=== PATIENT | female | born 1975 | race Two or more races ===

== ENCOUNTER 2020-05-18 21:47 | Inpatient (IN) | payer OTHER ==
[~2020-05-18] VITALS: Ht 157.5 cm; Wt 123.8 kg
[2020-05-19 03:00] VITALS: BP 111/56
--- NOTE | 2020-05-19 03:45 | NUR ---
SALES REPRESENTATIVESADVERTISING LAYOUT WORKER NOTES PATIENT ADMITTED FROM [place]; TRANSFERRED VIA [facility] WITH 2 EMT AT 0245. RECEIVED REPORT FROM [place] EMT. CC: DX: MILD HYPOXIA, COVID PNEUMONIA. PATIENT A/OX4 ABLE TO MAKE NEEDS KNOWN. ON O2 3LPM VIA NC; TOLERATING WELL WITH SOME SOB. ON EXTERNAL CARDIAC TELE MONITORING READING SR AND HR AT 75. IV ON LAC #20; PATENT AND INTACT. C/O MILD PAIN 2/10; TOLERABLE AND REFUSED MEDICATIONS. TEMPERATURE 99.3F; TOOK TYLENOL 1G AND DEXAMETHASONE 1G AT [place]. SKIN CLEAN, DRY, AND INTACT. ALL BELONGINGS ACCOUNTED FOR AND PATIENT SIGNED BELONGINGS LIST FORM. ORIENTED PATIENT TO STAFF AND ROOM. SAFETY MEASURES IN PLACE; BED IN LOWEST LOCKED POSITION, SIDE RAILS UP X2, CALL LIGHT WITHIN EASY REACH. BP 111/56, P 76, T 99.3F, RR 25, O2SAT 96% ON 3LPM ON NASAL CANNULA WILL CONTINUE TO MONITOR.
--- NOTE | 2020-05-19 04:05 | NUR ---
MEDICAL RECORDS FIELD TECHNICIAN NOTES NOTIFIED DR. KEVIN OF PATIENT'S ADMISSION AND ASKED FOR: -ADMISSION ORDER - MRSA SWAB -PROPHYLACTIC ANTICOAGULANT FOR VTE 2 DR. KEVIN AGREED. WILL FOLLOW UP.
[2020-05-19] MEDS ORDERED: ONDANSETRON HCL/PF 4 MG/2 ML VIAL IVP PRN (04:30)
[2020-05-19] MEDS ORDERED: ACETAMINOPHEN 325 MG TABLET PO PRN (04:30)
[2020-05-19] MEDS ORDERED: ENOXAPARIN SODIUM 40 MG/0.4 ML DISP.SYRIN SQ SCH (04:30)
[2020-05-19] MEDS ORDERED: MAG HYDROX/AL HYDROX/SIMETH 30 ML UDC PO PRN (04:30)
[2020-05-19] MEDS ORDERED: Z GUARD REMEDY 2 OZ OINT TP PRN (04:30)
[2020-05-19] MEDS ORDERED: ZOLPIDEM TARTRATE 5 MG TABLET PO PRN (04:30)
[2020-05-19] MEDS ORDERED: MAGNESIUM HYDROXIDE 30 ML UDC PO PRN (04:30)
[2020-05-19] MEDS ORDERED: HYDROCODONE/APAP 5/325MG TABLET PO PRN (04:30)
[2020-05-19 06:59] LABS: BASOPHILS % (AUTO) 0.2 % (0.0-2.0); HEMATOCRIT 35 % (33-45); HEMOGLOBIN 11.4 g/dL (11.5-14.8); LYMPHOCYTES # (AUTO) 0.7 /CMM (0.8-4.8); LYMPHOCYTES % (AUTO) 15.8 % (20.0-44.0); MEAN CORPUSCULAR HGB CONC 33 g/dl (31.0-36.0); MEAN CORPUSCULAR VOLUME 76 fL (82-100); MONOCYTES # (AUTO) 0.2 /CMM (0.1-1.30); MONOCYTES % (AUTO) 3.4 % (2.0-12.0); NEUTROPHILS # (AUTO) 3.8 /CMM (1.8-8.9); NEUTROPHILS % (AUTO) 80.6 % (43.0-81.0); PLATELET COUNT (AUTO) 221 /CMM (150-450); RED BLOOD CELL COUNT(AUTO) 4.62 MIL/uL (4.0-5.2); WHITE BLOOD COUNT (AUTO) 4.7 K/uL (4.3-11.0)
[2020-05-19 07:38] LABS: ALBUMIN 3.1 g/dL (3.4-5.0); BILIRUBIN,TOTAL 0.3 mg/dL (0.2-1.0); CALCIUM, SERUM 8.2 mg/dL (8.5-10.1); CREATININE 0.7 mg/dL (0.6-1.3); MAGNESIUM 2.1 mg/dL (1.8-2.4); PHOSPHORUS 2.8 mg/dL (2.5-4.9); TOTAL PROTEIN, SERUM 7.6 g/dL (6.4-8.2)
[2020-05-19 08:00] VITALS: BP 112/60
--- NOTE | 2020-05-19 08:00 | NUR ---
TELE/RN OPENING NOTE THE PATIENT IS RECEIVED IN BED. PATIENT IS ALERT AND ORIENTED X4. DENIES PAIN. RECEIVING OXYGEN AT 3L/MIN VIA NASAL CANNULA AND DENIES SOB. RESPIRATION REGULAR AND UNLABORED. LAC G 20 PATENT AND SALINE LOCKED. BED LOW AND LOCKED. SIDE RIALS UP X2. CALL LIGHT WITHIN REACH. WILL CONTINUE TO MONITOR.
--- NOTE | 2020-05-19 08:42 | NUR ---
REAL ESTATE UTILIZATION OFFICER CLOSING NOTES PATIENT A/OX4 ABLE TO MAKE NEEDS KNOWN. ON O2 3LPM VIA NC; TOLERATING WELL WITH SOME SOB. ON EXTERNAL CARDIAC TELE MONITORING READING SR AND HR AT 66. IV ON LAC #20; PATENT AND INTACT. SAFETY MEASURES IN PLACE; BED IN LOWEST LOCKED POSITION, SIDE RAILS UP X2, CALL LIGHT WITHIN EASY REACH. ENDORSE PLAN OF CARE TO ONCOMING MORNING RN.
[2020-05-19] MEDS ORDERED: METO50TA16 PO (09:29)
[2020-05-19] MEDS ORDERED: OXYB15TA19 PO (09:29)
[2020-05-19] MEDS ORDERED: ACET-73 PO (09:29)
[2020-05-19] MEDS ORDERED: BENZ200C53 PO (09:29)
[2020-05-19 12:00] VITALS: BP 120/58
[2020-05-19 12:16] LABS: C-REACTIVE PROTEIN 7.9 mg/dL (0.0-0.9)
[2020-05-19] MEDS ORDERED: DEXTROSE 50%-WATER 50 ML DISP.SYRIN IV PRN (15:30)
[2020-05-19 16:00] VITALS: BP 118/55
[2020-05-19] MEDS ORDERED: METOPROLOL TARTRATE 25 MG TABLET PO SCH (17:00)
[2020-05-19] MEDS ORDERED: BENZONATATE 100 MG CAPSULE PO PRN (17:00)
--- NOTE | 2020-05-19 17:20 | NUR ---
RN NOTE [employer]ER [employer] PROMOTER TIM IS MADE AWARE OF EKG RESULT AND PER [employer] PROMOTER NO NEW ORDERS.
[2020-05-19] MEDS: BLOOD SUGAR DIAGNOSTIC 1 EACH STRIP IN SCH ×2 (17:28→21:50)
[2020-05-19] MEDS: APIXABAN 5 MG TABLET PO SCH (17:28)
--- NOTE | 2020-05-19 18:47 | NUR ---
TELE/RN CLOSING NOTE THE PATIENT ALERT AND ORIENTED X4. DENIES PAIN. RECEIVING OXYGEN AT 3L/MIN VIA NASAL CANNULA AND SATURATION IS AT 99%. DENIES SOB. RESPIRATION REGULAR AND UNLABORED. TELE BOX READING IS 78. LAC G 20 PATENT AND SALINE LOCKED. BED LOW AND LOCKED. SIDE RAILS UP X2. CALL LIGHT WITHIN REACH. WILL ENDORSE TO SIMULATION SOFTWARE ENGINEER.
[2020-05-19 20:00] VITALS: BP 101/58
[2020-05-19] MEDS: GUAIFENESIN/CODEINE 10 ML UDC PO PRN (21:04)
[2020-05-19] MEDS: INSULIN REGULAR, HUMAN 100 UNIT/ML 3 ML VIAL SQ PRN (21:52)
[2020-05-20] VITALS (7 sets, daily range): BP systolic 100–150; BP diastolic 51–79
--- NOTE | 2020-05-20 04:37 | NUR ---
CLOSING NOTES: ALERT AND ORIENTATED X4 AMBULATES TO THE BATHROOM STEADY ON HER LEGS NC 02 AT 3 LITERS SATS 97% PATIENT IS COMFORTABLE COUGH SYRUP GIVEN X1 FOR COUGH NONPRODUCTIVE
[2020-05-20] MEDS: BLOOD SUGAR DIAGNOSTIC 1 EACH STRIP IN SCH ×5 (06:13→21:35)
[2020-05-20] MEDS: INSULIN REGULAR, HUMAN 100 UNIT/ML 3 ML VIAL SQ PRN ×3 (06:21→21:37)
[2020-05-20 06:22] LABS: BILIRUBIN,DIRECT 0.1 mg/dL (0.0-0.2); BILIRUBIN,TOTAL 0.3 mg/dL (0.2-1.0); TOTAL PROTEIN, SERUM 7.2 g/dL (6.4-8.2)
--- NOTE | 2020-05-20 07:35 | NUR ---
ms rn received on bed, awake,alert,oriented x4,not in any form of distress, respirations even and unlabored,no sob noted,lungs are diminished,abdomen soft,positive bowel sounds,denies pain at this time,all needs attended.
[2020-05-20] MEDS: DEXAMETHASONE SOD PHOSPHATE 10 MG/ML VIAL IV SCH (08:54)
[2020-05-20] MEDS: OXYBUTYNIN CHLORIDE ER 5 MG TAB PO SCH (08:54)
[2020-05-20] MEDS: GUAIFENESIN/CODEINE 10 ML UDC PO PRN (08:54)
[2020-05-20] MEDS: APIXABAN 5 MG TABLET PO SCH ×2 (08:55→17:50)
--- NOTE | 2020-05-20 09:30 | NUR ---
ms will breakfast served,due meds given,tolerated well.
[2020-05-20] MEDS ORDERED: REMDESIVIR (CHARGED) 200 MG, *LOADING DOSE 1 EA in IV NS 0.9% 210 ML IV ONE (11:00)
--- NOTE | 2020-05-20 12:00 | NUR ---
ms rn was seen by ,with orderes made and carried out.
[2020-05-20] MEDS: METOPROLOL TARTRATE 25 MG TABLET PO SCH ×2 (12:46→20:44)
--- NOTE | 2020-05-20 14:00 | NUR ---
ms rn patient refused convalescent plasma,will discuss w/ dr. lassiter in am.
--- NOTE | 2020-05-20 18:55 | NUR ---
ms rn on bed, no distress noted, o2 lowered to 2 liters saturating 95-96%
--- NOTE | 2020-05-21 06:02 | NUR ---
ALERT AND ORIENTATED X4 COMMENT SHE FEEL MUCH BETTER AFTER GETTING THE REMDISAVIR SHE WANTS TO SPEAK TO MD ELDER PRIOR GETTING THE CONV PLASMA WHICH WILL BE TODAY NO COMPLAINTS THIS 12 HOURS COMFORTABLE
[2020-05-21] MEDS: BLOOD SUGAR DIAGNOSTIC 1 EACH STRIP IN SCH ×4 (06:38→22:12)
[2020-05-21 06:56] LABS: BASOPHILS % (AUTO) 0.2 % (0.0-2.0); HEMATOCRIT 34 % (33-45); HEMOGLOBIN 11.2 g/dL (11.5-14.8); LYMPHOCYTES # (AUTO) 1.4 /CMM (0.8-4.8); LYMPHOCYTES % (AUTO) 23.8 % (20.0-44.0); MEAN CORPUSCULAR HGB CONC 33 g/dl (31.0-36.0); MEAN CORPUSCULAR VOLUME 77 fL (82-100); MONOCYTES # (AUTO) 0.7 /CMM (0.1-1.30); MONOCYTES % (AUTO) 11.5 % (2.0-12.0); NEUTROPHILS # (AUTO) 3.8 /CMM (1.8-8.9); NEUTROPHILS % (AUTO) 64.5 % (43.0-81.0); PLATELET COUNT (AUTO) 247 /CMM (150-450); RED BLOOD CELL COUNT(AUTO) 4.47 MIL/uL (4.0-5.2); WHITE BLOOD COUNT (AUTO) 5.8 K/uL (4.3-11.0)
[2020-05-21 07:05] LABS: CALCIUM, SERUM 8.4 mg/dL (8.5-10.1); CREATININE 0.6 mg/dL (0.6-1.3); MAGNESIUM 2.2 mg/dL (1.8-2.4); PHOSPHORUS 3.3 mg/dL (2.5-4.9); POTASSIUM 3.8 mmol/L (3.5-5.1)
--- NOTE | 2020-05-21 07:30 | NUR ---
PT RECEIVED RESTING COMFORTABLY IN BED. NO S/S OR C/O PAIN OR DISTRESS NOTED. SIDE RAILS UP X2, CALL LIGHT LEFT WITHIN REACH. WILL CONTINUE PLAN OF CARE.
[2020-05-21 08:00] VITALS: BP 120/55
[2020-05-21] MEDS: OXYBUTYNIN CHLORIDE ER 5 MG TAB PO SCH (08:36)
[2020-05-21] MEDS: DEXAMETHASONE SOD PHOSPHATE 10 MG/ML VIAL IV SCH (08:37)
[2020-05-21] MEDS: APIXABAN 5 MG TABLET PO SCH ×2 (08:37→17:32)
[2020-05-21] MEDS: METOPROLOL TARTRATE 25 MG TABLET PO SCH ×3 (08:47→22:00)
[2020-05-21] MEDS: INSULIN REGULAR, HUMAN 100 UNIT/ML 3 ML VIAL SQ PRN ×2 (12:20→17:21)
[2020-05-21 12:45] LABS: ALBUMIN 2.9 g/dL (3.4-5.0); BILIRUBIN,DIRECT 0.1 mg/dL (0.0-0.2); BILIRUBIN,TOTAL 0.2 mg/dL (0.2-1.0); TOTAL PROTEIN, SERUM 7.1 g/dL (6.4-8.2)
[2020-05-21] MEDS: REMDESIVIR (CHARGED) 100 MG in IV NS 0.9% 100 ML IV SCH (15:16)
[2020-05-21 16:00] VITALS: BP 113/59
--- NOTE | 2020-05-21 19:00 | NUR ---
CHANGE OF SHIFT REPORT PT RESTING COMFORTABLY IN BED. NO S/S OR C/O PAIN OR DISTRESS NOTED. SIDE RAILS UP X2, CALL LIGHT LEFT WITHIN REACH. PT KEPT CLEAN, DRY, AND COMFORTABLE. NO SIGNIFICANT CHANGES SINCE PREVIOUS SHIFT. WILL GIVE REPORT TO MICHELET SALINAS.
--- NOTE | 2020-05-21 19:30 | NUR ---
MS/RN OPENING NOTES RECEIVED PATIENT IN BED RESTING. PATIENT IS ALERT AND ORIENTED X 4. PATIENTS BREATHING IS EVEN AND UNLABORED. NO SIGNS OF SOB OR RESPIRATORY NOTED. PATIENT STATES NO PAIN AT THIS TIME. PATIENT HAS IV ACCESS ON LEFT AC #20G SL, INTACT FLUSHING WELL. SAFETY MEASURES ARE IN PLACE, BED IS LOCKED AND PLACED IN THE LOWEST POSITION, CALL LIGHT IS WITHIN REACH. WILL CONTINUE TO MONITOR THROUGH OUT SHIFT.
[2020-05-21 20:00] VITALS: BP 108/62
[2020-05-22] MEDS: BLOOD SUGAR DIAGNOSTIC 1 EACH STRIP IN SCH ×4 (06:52→22:34)
--- NOTE | 2020-05-22 07:05 | NUR ---
MS/RN CLOSING NOTES PATIENT IN BED RESTING. PATIENT IS ALERT AND ORIENTED X 4. PATIENTS BREATHING IS EVEN AND UNLABORED. NO SIGNS OF SOB OR RESPIRATORY NOTED. PATIENT STATES NO PAIN AT THIS TIME. PATIENT HAS IV ACCESS ON LEFT AC #20G SL, INTACT FLUSHING WELL. ALL NEEDS HAVE BEEN MET DURING SHIFT. SAFETY MEASURES ARE IN PLACE, BED IS LOCKED AND PLACED IN THE LOWEST POSITION, CALL LIGHT IS WITHIN REACH. WILL ENDORSE CARE TO DAY SHIFT NURSE.
[2020-05-22 07:39] LABS: ALBUMIN 2.9 g/dL (3.4-5.0); BILIRUBIN,DIRECT 0.1 mg/dL (0.0-0.2); BILIRUBIN,TOTAL 0.2 mg/dL (0.2-1.0); CALCIUM, SERUM 8.6 mg/dL (8.5-10.1); CREATININE 0.6 mg/dL (0.6-1.3); PHOSPHORUS 3.3 mg/dL (2.5-4.9); POTASSIUM 3.9 mmol/L (3.5-5.1)
[2020-05-22 08:00] VITALS: BP 141/63
--- NOTE | 2020-05-22 08:00 | NUR ---
MS RN OPENING NOTES PATIENT IN BED RESTING. PATIENT IS ALERT AND ORIENTED X 4. PATIENTS BREATHING IS EVEN AND UNLABORED. NO SIGNS OF SOB OR RESPIRATORY NOTED ON ROOM AIR. PATIENT DENIES PAIN AT THIS TIME. PATIENT HAS IV ACCESS ON LEFT AC #20G SL, INTACT FLUSHING WELL. SAFETY MEASURES ARE IN PLACE, BED IS LOCKED AND PLACED IN THE LOWEST POSITION, CALL LIGHT IS WITHIN REACH.
[2020-05-22 08:20] LABS: BASOPHILS % (AUTO) 0.1 % (0.0-2.0); EOSINOPHILS % (AUTO) 0.1 % (0.0-6.0); HEMATOCRIT 34 % (33-45); HEMOGLOBIN 11.1 g/dL (11.5-14.8); LYMPHOCYTES # (AUTO) 1.7 /CMM (0.8-4.8); LYMPHOCYTES % (AUTO) 26.1 % (20.0-44.0); MEAN CORPUSCULAR HGB CONC 32 g/dl (31.0-36.0); MEAN CORPUSCULAR VOLUME 77 fL (82-100); MONOCYTES # (AUTO) 0.6 /CMM (0.1-1.30); NEUTROPHILS # (AUTO) 4.3 /CMM (1.8-8.9); NEUTROPHILS % (AUTO) 64.7 % (43.0-81.0); PLATELET COUNT (AUTO) 286 /CMM (150-450); RED BLOOD CELL COUNT(AUTO) 4.47 MIL/uL (4.0-5.2); WHITE BLOOD COUNT (AUTO) 6.7 K/uL (4.3-11.0)
[2020-05-22] MEDS: METOPROLOL TARTRATE 25 MG TABLET PO SCH ×2 (09:00→21:00)
[2020-05-22] MEDS: DEXAMETHASONE SOD PHOSPHATE 10 MG/ML VIAL IV SCH (09:31)
[2020-05-22] MEDS: OXYBUTYNIN CHLORIDE ER 5 MG TAB PO SCH (09:31)
[2020-05-22] MEDS: APIXABAN 5 MG TABLET PO SCH ×2 (09:32→16:36)
[2020-05-22 09:33] LABS: IRON, SERUM 73 ug/dl (50-175); TOTAL IRON BINDING CAPACITY 307 ug/dl (250-450)
[2020-05-22 09:43] LABS: FERRITIN 116 ng/mL (8-388)
[2020-05-22] MEDS: REMDESIVIR (CHARGED) 100 MG in IV NS 0.9% 100 ML IV SCH (11:00)
[2020-05-22] MEDS: INSULIN REGULAR, HUMAN 100 UNIT/ML 3 ML VIAL SQ PRN ×3 (13:03→22:36)
[2020-05-22 16:00] VITALS: BP 119/58
[2020-05-22 18:56] VITALS: BP 119/58
--- NOTE | 2020-05-22 19:30 | NUR ---
MS/RN OPENING NOTES RECEIVED PATIENT IN BED RESTING. PATIENT IS ALERT AND ORIENTED X 4. PATIENTS BREATHING IS EVEN AND UNLABORED. NO SIGNS OF SOB OR RESPIRATORY NOTED. PATIENT STATES NO PAIN AT THIS TIME. SAFETY MEASURES ARE IN PLACE, BED IS LOCKED AND PLACED IN THE LOWEST POSITION, CALL LIGHT IS WITHIN REACH. WILL CONTINUE TO MONITOR THROUGH OUT SHIFT.
--- NOTE | 2020-05-22 19:59 | NUR ---
PT RESTING IN BED WITH NO C/O PAIN OR DISTRESS.CALL LIGHT PLACED WITHIN REACH.
[2020-05-22 20:00] VITALS: BP 114/50
[2020-05-22] MEDS: GUAIFENESIN/CODEINE 10 ML UDC PO PRN (23:52)
[2020-05-23] VITALS (8 sets, daily range): BP systolic 101–129; BP diastolic 45–73
--- NOTE | 2020-05-23 | NUR ---
MS/RN NOTES PATIENT COMPLAINING OF COUGH AND REQUESTING FOR FIRE ASSISTANT. PATIENT GIVEN ROBITUSSIN 5 ML PO. WILL CONTINUE TO MONITOR.
[2020-05-23 06:39] LABS: BASOPHILS % (AUTO) 0.1 % (0.0-2.0); EOSINOPHILS % (AUTO) 0.2 % (0.0-6.0); HEMATOCRIT 34 % (33-45); HEMOGLOBIN 11.2 g/dL (11.5-14.8); LYMPHOCYTES # (AUTO) 1.8 /CMM (0.8-4.8); LYMPHOCYTES % (AUTO) 25.5 % (20.0-44.0); MEAN CORPUSCULAR HGB CONC 33 g/dl (31.0-36.0); MEAN CORPUSCULAR VOLUME 76 fL (82-100); MONOCYTES # (AUTO) 0.6 /CMM (0.1-1.30); MONOCYTES % (AUTO) 7.8 % (2.0-12.0); NEUTROPHILS # (AUTO) 4.7 /CMM (1.8-8.9); NEUTROPHILS % (AUTO) 66.4 % (43.0-81.0); PLATELET COUNT (AUTO) 300 /CMM (150-450); RED BLOOD CELL COUNT(AUTO) 4.43 MIL/uL (4.0-5.2); WHITE BLOOD COUNT (AUTO) 7.1 K/uL (4.3-11.0)
[2020-05-23] MEDS: BLOOD SUGAR DIAGNOSTIC 1 EACH STRIP IN SCH ×4 (06:42→22:00)
--- NOTE | 2020-05-23 06:55 | NUR ---
MS/RN CLOSING NOTES PATIENT IN BED RESTING. PATIENT IS ALERT AND ORIENTED X 4. PATIENTS BREATHING IS EVEN AND UNLABORED. NO SIGNS OF SOB OR RESPIRATORY NOTED. PATIENT STATES NO PAIN AT THIS TIME. ALL NEEDS HAVE BEEN MET DURING SHIFT. SAFETY MEASURES ARE IN PLACE, BED IS LOCKED AND PLACED IN THE LOWEST POSITION, CALL LIGHT IS WITHIN REACH. WILL ENDORSE CARE TO DAY SHIFT NURSE.
[2020-05-23 06:56] LABS: BILIRUBIN,DIRECT 0.1 mg/dL (0.0-0.2); BILIRUBIN,TOTAL 0.2 mg/dL (0.2-1.0); CALCIUM, SERUM 8.9 mg/dL (8.5-10.1); CREATININE 0.6 mg/dL (0.6-1.3); POTASSIUM 3.9 mmol/L (3.5-5.1); TOTAL PROTEIN, SERUM 7.1 g/dL (6.4-8.2)
--- NOTE | 2020-05-23 07:06 | NUR ---
RN OPENING NOTE RECEIVED PT AWAKE IN BED AT THIS TIME. AOX4. PT ABLE TO VERBALIZE NEEDS. NO SOB NOTED, NO S/S OF ANY ACUTE DISTRESS NOTED, NO C/O PAIN AT THIS TIME. PT NOTED WITH NO IV ACCESS, PER STUMPER FELLER NURSE IV GOT DISLODGED, WAS UNABLE TO GET AN IV IN. ASPIRATIONS AND SAFETY PRECAUTIONS IN PLACE AND MAINTAINED AT ALL TIMES. BED IN LOWEST LOCKED POSITION, SIDE RAILS UP, HOB ELEVATED, TABLE AND CALL LIGHT WITHIN REACH. WILL CONTINUE TO MONITOR.
[2020-05-23] MEDS: OXYBUTYNIN CHLORIDE ER 5 MG TAB PO SCH (09:27)
[2020-05-23] MEDS: METOPROLOL TARTRATE 25 MG TABLET PO SCH ×2 (09:28→21:00)
[2020-05-23] MEDS: APIXABAN 5 MG TABLET PO SCH ×2 (09:29→16:28)
--- NOTE | 2020-05-23 10:09 | NUR ---
IV INSERTED IN RAC G#22, GOOD BLOOD RETURN NOTED, INTACT, PATENT AND FLUSHING WELL. PT TOLERATED WELL. WILL CONTINUE TO MONITOR
[2020-05-23] MEDS: DEXAMETHASONE SOD PHOSPHATE 10 MG/ML VIAL IV SCH (10:12)
[2020-05-23] MEDS: REMDESIVIR (CHARGED) 100 MG in IV NS 0.9% 100 ML IV SCH (11:16)
[2020-05-23] MEDS: INSULIN REGULAR, HUMAN 100 UNIT/ML 3 ML VIAL SQ PRN ×3 (12:18→23:03)
--- NOTE | 2020-05-23 13:51 | NUR ---
PT SIGNED CONSENT FOR BLOOD PRODUCTS D/T AWAITING CONVALESCENT PLASMA. CONSENT FILED IN CHART. WILL CONTINUE TO MONITOR
--- NOTE | 2020-05-23 14:42 | NUR ---
RECEIVED ORDERS FOR MIDLINE INSERTION FROM AROLDO LANDAVERDE NURSE DRIER OPERATOR MADE AWARE, ENTERED ORDERS. WILL CONTINUE WITH PLAN OF CARE
--- NOTE | 2020-05-23 18:43 | NUR ---
RN CLOSING NOTES PT AWAKE IN BED AT THIS TIME AT THIS TIME. PT REMAINED STABLE THROUGHOUT SHIFT. PT REMAINED STABLE ON OXYGEN @ 2LPM VIA NC SATURATING @ 97%. ALL CARE, NEED, MEDICATIONS AND TREATMENT ADMINISTERED ANTICIPATED PER ORDER. PT KEPT CLEAN AND DRY. LINENS CHANGED AND KEPT CLEAN. PT ASSISTED PRN. ASPIRATION, RESPIRATION, AND SAFETY PRECAUTION IN PLACE AND MAINTAINED AT ALL TIMES. BED IN LOWEST LOCKED POSITION, HOB ELEVATED, SIDE RAILS UP X 2, CALL LIGHT AND TABLE WITHIN REACH. WILL ENDORSE TO COUPON MANIFEST CLERK NURSE FOR AURELIA
--- NOTE | 2020-05-23 19:30 | NUR ---
MS/RN OPENING NOTES RECEIVED PATIENT IN BED RESTING. PATIENT IS ALERT AND ORIENTED X 4. PATIENTS BREATHING IS EVEN AND UNLABORED. NO SIGNS OF SOB OR RESPIRATORY NOTED. PATIENT STATES NO PAIN AT THIS TIME. PATIENT HAS RIGHT FA IV AND CARRIE MIDLINE IN PLACE, INTACT. SAFETY MEASURES ARE IN PLACE, BED IS LOCKED AND PLACED IN THE LOWEST POSITION, CALL LIGHT IS WITHIN REACH. WILL CONTINUE TO MONITOR THROUGH OUT SHIFT.
--- NOTE | 2020-05-23 21:15 | NUR ---
MS/RN NOTES PATIENT STARTED CONVALESCENT PLASMA INFUSION. VITAL SIGNS TAKEN TEMP TAKEN. WILL CONTINUE TO MONITOR.
--- NOTE | 2020-05-23 22:05 | NUR ---
MS/RN NOTES PATIENT COMPLETED CONVALESCENT PLASMA INFUSION. NO S/E OR REACTIONS NOTED. PATIENT VITAL SIGNS ARE WITHIN NORMAL LIMITS. PATIENT IS AFEBRILE. WILL CONTINUE TO MONITOR.
[2020-05-24] MEDS: BLOOD SUGAR DIAGNOSTIC 1 EACH STRIP IN SCH ×2 (06:28→12:36)
[2020-05-24] MEDS: INSULIN REGULAR, HUMAN 100 UNIT/ML 3 ML VIAL SQ PRN ×2 (06:29→12:44)
--- NOTE | 2020-05-24 06:40 | NUR ---
MS/RN CLOSING NOTES PATIENT IN BED RESTING. PATIENT IS ALERT AND ORIENTED X 4. PATIENTS BREATHING IS EVEN AND UNLABORED. NO SIGNS OF SOB OR RESPIRATORY NOTED. PATIENT STATES NO PAIN AT THIS TIME. PATIENT IN NO SIGNS OF DISTRESS. ALL NEEDS HAVE BEEN MET DURING SHIFT. SAFETY MEASURES ARE IN PLACE, BED IS LOCKED AND PLACED IN THE LOWEST POSITION, SIDE RAILS UP X 2. CALL LIGHT IS WITHIN REACH. WILL ENDORSE CARE TO DAY SHIFT NURSE.
--- NOTE | 2020-05-24 07:03 | NUR ---
RN OPENING NOTE RECEIVED PT AWAKE IN BED AT THIS TIME. AOX4. PT ABLE TO MAKE NEEDS KNOWN. NO SOB NOTED, NO S/S OF ANY ACUTE DISTRESS NOTED, NO C/O PAIN AT THIS TIME. PT NOTED WITH IV ACCESS IN RAC G#22 AND CARRIE MIDLINE G#18, BOTH INTACT, PATENT AND FLUSHING WELL. PT STABLE ON RA. PER MANAGER OF TAX NURSE, PT USES OXYGEN @2LPM VIA NC WHEN AMBULATING TO BATHROOM. ASPIRATIONS, RESPIRATION AND SAFETY PRECAUTIONS IN PLACE AND MAINTAINED AT ALL TIMES. BED IN LOWEST LOCKED POSITION, SIDE RAILS UP, HOB ELEVATED, TABLE AND CALL LIGHT WITHIN REACH. WILL CONTINUE TO MONITOR.
[2020-05-24 07:05] LABS: BASOPHILS % (AUTO) 0.1 % (0.0-2.0); EOSINOPHILS % (AUTO) 0.4 % (0.0-6.0); HEMATOCRIT 34 % (33-45); HEMOGLOBIN 11.1 g/dL (11.5-14.8); LYMPHOCYTES # (AUTO) 1.9 /CMM (0.8-4.8); LYMPHOCYTES % (AUTO) 24.7 % (20.0-44.0); MEAN CORPUSCULAR HGB CONC 33 g/dl (31.0-36.0); MEAN CORPUSCULAR VOLUME 76 fL (82-100); MONOCYTES # (AUTO) 0.6 /CMM (0.1-1.30); MONOCYTES % (AUTO) 7.3 % (2.0-12.0); NEUTROPHILS # (AUTO) 5.3 /CMM (1.8-8.9); NEUTROPHILS % (AUTO) 67.5 % (43.0-81.0); PLATELET COUNT (AUTO) 329 /CMM (150-450); RED BLOOD CELL COUNT(AUTO) 4.45 MIL/uL (4.0-5.2); WHITE BLOOD COUNT (AUTO) 7.9 K/uL (4.3-11.0)
[2020-05-24 07:36] LABS: ALBUMIN 3.1 g/dL (3.4-5.0); BILIRUBIN,DIRECT 0.1 mg/dL (0.0-0.2); BILIRUBIN,TOTAL 0.3 mg/dL (0.2-1.0); CALCIUM, SERUM 8.9 mg/dL (8.5-10.1); CREATININE 0.6 mg/dL (0.6-1.3); MAGNESIUM 2.1 mg/dL (1.8-2.4); PHOSPHORUS 3.4 mg/dL (2.5-4.9); POTASSIUM 4.1 mmol/L (3.5-5.1)
[2020-05-24 08:00] VITALS: BP 118/72
[2020-05-24] MEDS: OXYBUTYNIN CHLORIDE ER 5 MG TAB PO SCH (08:29)
[2020-05-24] MEDS: DEXAMETHASONE SOD PHOSPHATE 10 MG/ML VIAL IV SCH (08:29)
[2020-05-24] MEDS: APIXABAN 5 MG TABLET PO SCH (08:30)
[2020-05-24 08:34] VITALS: BP 118/72
[2020-05-24] MEDS: METOPROLOL TARTRATE 25 MG TABLET PO SCH (08:34)
[2020-05-24] MEDS: REMDESIVIR (CHARGED) 100 MG in IV NS 0.9% 100 ML IV SCH (12:35)
[2020-05-24] MEDS ORDERED: APIX5TAB PO (13:39)
[2020-05-24] MEDS ORDERED: DEXA6TAB6 PO (13:39)
--- NOTE | 2020-05-24 16:25 | NUR ---
TANNER ROTARY DRUM CONTINUOUS PROCESS NOTES. PT DISCHARGE TO HOME WITH SELF CARE AT THIS TIME. PT MEDICALLY STABLE AND CLEARED FOR DISCHARGE. ALL CARE, NEED, MEDICATIONS AND TREATMENT ADMINISTERED ANTICIPATED PER ORDER. ALL DISCHARGE INSTRUCTIONS/TEACHINGS PROVIDED AND PT VERBALIZED UNDERSTANDING. BELONGINGS ACCOUNTED FOR, BELONGING LIST SIGNED BY PT, BELONGINGS WITH PT. ID BAND REMOVED. IV ASSESS REMOVED, PRESSURE APPLIED, SECURED WITH GAUZE AND TAPE. NO S/O BLEEDING OR INFILTRATION NOTED. PT TRANSPORTED OUT OF UNIT IN STABLE CONDITION BY WHEEL CHAIR ACCOMPANIED BY NURSE. PT PICKED UP BE SISTER IN PRIVATE CARE. DR SIMENTAL AND YU, CHARGE NURSE AWARE.
== END 2020-05-24 16:10 | disposition home or self-care (01) | DRG 137 ==
LOC: TELE2 05-19 02:36 → MEDSG2 05-20 11:24 → MEDSG1 05-24 09:53
PROVIDERS: ADMIT Nurse Practitioner Acute Care; ATTEND Student in an Organized Health Care Education/Training Program
PROC: XW033E5 Introduction of Remdesivir Anti-infective into Peripheral Vein, Percutaneous Approach, New Technology Group 5 (ICD-10-PCS; principal; 2020-05-20)
PROC: XW13325 Transfusion of Convalescent Plasma (Nonautologous) into Peripheral Vein, Percutaneous Approach, New Technology Group 5 (ICD-10-PCS; 2020-05-20)
PROC: 05H933Z Insertion of Infusion Device into Right Brachial Vein, Percutaneous Approach (ICD-10-PCS; 2020-05-24)
DX: U07.1 COVID-19 (principal); J12.82 Pneumonia due to coronavirus disease 2019; J96.01 Acute respiratory failure with hypoxia; E44.1 Mild protein-calorie malnutrition; E11.65 Type 2 diabetes mellitus with hyperglycemia; N32.81 Overactive bladder; I48.0 Paroxysmal atrial fibrillation; R74.01 Elevation of levels of liver transaminase levels; Z68.39 Body mass index [BMI] 39.0-39.9, adult; E66.01 Morbid (severe) obesity due to excess calories; E83.51 Hypocalcemia; Z90.49 Acquired absence of other specified parts of digestive tract; G47.33 Obstructive sleep apnea (adult) (pediatric); I10 Essential (primary) hypertension
CPT/HCPCS: 36415; 71045-TC; 80048-TC; 80053-TC; 80061-TC; 80076-TC; 82728-TC; 82962-TC; 83540-TC; 83615-TC; 83735-TC; 84100-TC; 84702-TC; 85025-TC; 85378-TC; 85610-TC; 85730-TC; 86140-TC; 86850-TC; 87081-TC; A4216; G0378; J1100; J1650; J7030; J7050; P9017-BL